=== PATIENT | male | born 1975 | race Caucasian/White ===

== ENCOUNTER 2019-06-22 20:01 | Emergency (ER) | payer SELFPAY ==
[~2019-06-22] VITALS: Ht 162.6 cm; Wt 65.0 kg
[2019-06-22] MEDS ORDERED: SODIUM CHLORIDE 0.9% 1,000 ML IV ONE (22:45)
[2019-06-22] MEDS ORDERED: ACYCLOVIR 400 MG TABLET PO ONE (23:30)
[2019-06-22] MEDS ORDERED: LIDOCAINE HCL 2% JELLY 5ML TOP ONE (23:30)
[2019-06-23 00:36] LABS: BASOPHILS % 0.5 % (0.0-2.0); EOSINOPHILS % 2.4 % (0.0-5.0); HEMATOCRIT. 37.8 % (42.0-52.0); HEMOGLOBIN. 13.1 g/dL (14.0-18.0); LYMPHOCYTES % 40.8 % (20.0-50.0); MEAN CORPUSCULAR VOLUME 86.7 fL (80.0-94.0); MEAN PLATELET VOLUME 8.3 fl (7.4-10.4); MONOCYTES % 6.4 % (2.0-8.0); NEUTROPHILS % 49.9 % (40.0-76.0); PLATELET 280 x1000/uL (130-400); RED BLOOD CELL COUNT 4.36 mill/uL (4.7-6.1); RED CELL DISTRIBUTION WIDTH 12.4 % (11.6-14.6)
[2019-06-23 00:42] LABS: CHLORIDE 106 mEq/L (98-107)
[2019-06-23 00:59] LABS: BETA HYDROXYBUTYRATE 0.2 mMol/L (0.0-0.3)
[2019-06-23 01:07] LABS: CLARITY URINE CLEAR (CLEAR); COLOR URINE YELLOW (YELLOW); KETONES URINE NEGATIVE (NEGATIVE); LEUKOCYTE ESTERASE URINE NEGATIVE (NEGATIVE); NITRITE URINE NEGATIVE (NEGATIVE); OCCULT BLOOD URINE NEGATIVE (NEGATIVE); PH URINE 7.5 (4.5-8.0); PROTEIN URINE NEGATIVE (NEGATIVE); SPECIFIC GRAVITY URINE 1.044 (1.005-1.030); UROBILINOGEN URINE 0.2 E.U./dL (0.2-1.0)
[2019-06-23] MEDS ORDERED: CEFTRIAXONE SODIUM 250 MG/VIAL IM ONE (01:45)
[2019-06-23] MEDS ORDERED: INSULIN LISPRO 100 UNITS/ML SUBCUT NR (01:45)
[2019-06-23] MEDS ORDERED: AZITHROMYCIN 500 MG TABLET PO ONE (01:45)
[2019-06-23 01:50] LABS: *AMPHETAMINES SCREEN URINE NEGATIVE (NEGATIVE); *BARBITURATES SCREEN URINE NEGATIVE (NEGATIVE); *BENZODIAZEPINES SCREEN URINE NEGATIVE (NEGATIVE); *COCAINE SCREEN URINE NEGATIVE (NEGATIVE); CANNABINOID URINE SCREEN NEGATIVE (NEGATIVE); METHADONE URINE SCREEN NEGATIVE (NEGATIVE); OPIATES URINE SCREEN NEGATIVE (NEGATIVE)
[2019-06-23 01:52] LABS: PHENCYCLIDINE URINE SCREEN NEGATIVE (NEGATIVE)
[2019-06-23 02:07] VITALS: BP 118/74
== END 2019-06-23 02:09 | disposition home or self-care (01) ==
LOC: ER 20:01
DX: A60.02 Herpesviral infection of other male genital organs (principal); A60.01 Herpesviral infection of penis; E11.65 Type 2 diabetes mellitus with hyperglycemia
CPT/HCPCS: 36415; 80053; 80305; 81003; 82010; 82962; 83605; 83690; 84145; 85025; 86850; 86900; 86901; 87040; 96360; 96372; 99284; J0696; J1815; J7030

== ENCOUNTER 2019-08-16 21:26 | Emergency (ER) | payer SELFPAY ==
[~2019-08-16] VITALS: Ht 165.1 cm; Wt 70.0 kg
[2019-08-16] MEDS ORDERED: SODIUM CHLORIDE 0.9% 1,000 ML IV ONE (22:33)
[2019-08-16] MEDS ORDERED: ONDANSETRON HCL 4MG/2ML INJ IV ONE (22:45)
[2019-08-16] MEDS ORDERED: ACETAMINOPHEN 325MG TABLET PO ONE (22:45)
[2019-08-16 23:21] LABS: CLARITY URINE CLEAR (CLEAR); COLOR URINE YELLOW (YELLOW); KETONES URINE TRACE (NEGATIVE); LEUKOCYTE ESTERASE URINE NEGATIVE (NEGATIVE); NITRITE URINE NEGATIVE (NEGATIVE); OCCULT BLOOD URINE NEGATIVE (NEGATIVE); PH URINE 7.5 (4.5-8.0); PROTEIN URINE NEGATIVE (NEGATIVE); SPECIFIC GRAVITY URINE 1.042 (1.005-1.030); UROBILINOGEN URINE 0.2 E.U./dL (0.2-1.0)
[2019-08-16 23:30] LABS: CHLORIDE 101 mEq/L (98-107)
[2019-08-16 23:31] LABS: BASOPHILS % 0.5 % (0.0-2.0); EOSINOPHILS % 1.6 % (0.0-5.0); HEMATOCRIT. 42.7 % (42.0-52.0); HEMOGLOBIN. 14.9 g/dL (14.0-18.0); MEAN CORPUSCULAR HEMOGLOBIN 30.2 pg (28.0-32.0); MEAN CORPUSCULAR VOLUME 86.3 fL (80.0-94.0); MONOCYTES % 10.3 % (2.0-8.0); NEUTROPHILS % 56.6 % (40.0-76.0); PLATELET 297 x1000/uL (130-400); RED BLOOD CELL COUNT 4.94 mill/uL (4.7-6.1); RED CELL DISTRIBUTION WIDTH 12.4 % (11.6-14.6)
[2019-08-16 23:40] LABS: BETA HYDROXYBUTYRATE 0.4 mMol/L (0.0-0.3)
[2019-08-17 00:53] VITALS: BP 105/62
== END 2019-08-17 01:19 | disposition home or self-care (01) ==
LOC: ER 21:26
DX: E11.65 Type 2 diabetes mellitus with hyperglycemia (principal); Z79.4 Long term (current) use of insulin
CPT/HCPCS: 36415; 80053; 81003; 82010; 82962; 83690; 84484; 85025; 93005; 96361; 96374; 99284; J2405; J7030

== ENCOUNTER 2022-02-17 19:57 | Inpatient (IN) | payer MEDICAID ==
[~2022-02-17] VITALS: Ht 160 cm; Wt 81.6 kg
[2022-02-18] MEDS ORDERED: SODIUM CHLORIDE 0.9% 1,000 ML IV ONE (00:30)
[2022-02-18 00:34] LABS: BASOPHILS % 0.5 % (0.0-2.0); EOSINOPHILS % 2.1 % (0.0-5.0); HEMATOCRIT. 39.5 % (42.0-52.0); HEMOGLOBIN. 13.7 g/dL (14.0-18.0); LYMPHOCYTES % 25.7 % (20.0-50.0); MEAN CORPUSCULAR VOLUME 86.6 fL (80.0-94.0); MEAN PLATELET VOLUME 7.2 fl (7.4-10.4); MONOCYTES % 6.3 % (2.0-8.0); NEUTROPHILS % 65.4 % (40.0-76.0); PLATELET 350 x1000/uL (130-400); RED BLOOD CELL COUNT 4.57 mill/uL (4.7-6.1); RED CELL DISTRIBUTION WIDTH 13.1 % (11.6-14.6)
[2022-02-18 00:50] LABS: CHLORIDE 108 mEq/L (98-107)
[2022-02-18 00:54] LABS: ETHANOL BLOOD < 10 mg/dL
[2022-02-18 00:59] LABS: CREATINE KINASE 142 IU/L (39-308)
[2022-02-18] MEDS ORDERED: LORAZEPAM 2MG/ML CPJ IV ONE (01:15)
[2022-02-18] MEDS ORDERED: ASPIRIN 81MG TABLET PO ONE (01:15)
[2022-02-18] MEDS ORDERED: KETOROLAC 30MG/ML VIAL IV ONE (01:15)
[2022-02-18] MEDS ORDERED: POTASSIUM CHLORIDE 20MEQ TABLET SR PO ONE (01:30)
[2022-02-18] MEDS ORDERED: ASPIRIN 81MG TABLET PO NR (01:45)
[2022-02-18] MEDS ORDERED: CLONIDINE 0.1MG TABLET PO PRN (01:45)
[2022-02-18] MEDS ORDERED: ONDANSETRON HCL 4MG/2ML INJ IV PRN (01:45)
[2022-02-18] MEDS ORDERED: DOCUSATE SODIUM 100MG CAPSULE PO PRN (01:45)
[2022-02-18] MEDS ORDERED: IPRATROPIUM/ALBUTEROL 0.5-3(2.5)MG/3ML NEB HHN PRN (01:45)
[2022-02-18] MEDS ORDERED: GUAIFENESIN 200MG/10ML SUGAR FREE UDC PO PRN (01:45)
[2022-02-18] MEDS: ENOXAPARIN 40MG/0.4ML SYR SUBCUT SCH (02:00)
[2022-02-18 05:03] LABS: CLARITY URINE CLEAR (CLEAR); COLOR URINE YELLOW (YELLOW); KETONES URINE NEGATIVE (NEGATIVE); LEUKOCYTE ESTERASE URINE NEGATIVE (NEGATIVE); NITRITE URINE NEGATIVE (NEGATIVE); OCCULT BLOOD URINE NEGATIVE (NEGATIVE); PROTEIN URINE NEGATIVE (NEGATIVE); SPECIFIC GRAVITY URINE 1.012 (1.005-1.030); UROBILINOGEN URINE 0.2 E.U./dL (0.2-1.0)
[2022-02-18 05:14] LABS: BASOPHILS % 0.3 % (0.0-2.0); EOSINOPHILS % 1.1 % (0.0-5.0); HEMOGLOBIN. 13.2 g/dL (14.0-18.0); LYMPHOCYTES % 19.7 % (20.0-50.0); MEAN CORPUSCULAR HEMOGLOBIN 30.2 pg (28.0-32.0); MEAN CORPUSCULAR VOLUME 86.7 fL (80.0-94.0); MEAN PLATELET VOLUME 7.4 fl (7.4-10.4); MONOCYTES % 5.2 % (2.0-8.0); NEUTROPHILS % 73.7 % (40.0-76.0); PLATELET 330 x1000/uL (130-400); RED BLOOD CELL COUNT 4.38 mill/uL (4.7-6.1); RED CELL DISTRIBUTION WIDTH 13.1 % (11.6-14.6)
[2022-02-18 05:15] LABS: *AMPHETAMINES SCREEN URINE NEGATIVE (NEGATIVE); *BARBITURATES SCREEN URINE NEGATIVE (NEGATIVE); *BENZODIAZEPINES SCREEN URINE NEGATIVE (NEGATIVE); *COCAINE SCREEN URINE NEGATIVE (NEGATIVE)
[2022-02-18 05:16] LABS: CANNABINOID URINE SCREEN PRESUMTIVE POSITIVE (NEGATIVE); METHADONE URINE SCREEN NEGATIVE (NEGATIVE); OPIATES URINE SCREEN NEGATIVE (NEGATIVE); PHENCYCLIDINE URINE SCREEN NEGATIVE (NEGATIVE)
[2022-02-18 05:25] LABS: CHLORIDE 108 mEq/L (98-107)
[2022-02-18 05:46] LABS: FOLIC ACID (FOLATE) SERUM 17.5 ng/mL (>5.38)
[2022-02-18] MEDS: ASPIRIN 81MG EC TABLET PO SCH (09:37)
[2022-02-18 10:30] VITALS: BP 119/70
[2022-02-18] MEDS ORDERED: DEXTROSE 50% WATER 50ML SYRINGE IV PRN (11:15)
[2022-02-18 12:00] VITALS: BP 122/77
[2022-02-18] MEDS: INSULIN LISPRO 100 UNITS/ML SUBCUT SCH ×3 (12:27→21:04)
[2022-02-18] MEDS: ACETAMINOPHEN 325MG TABLET PO PRN ×2 (12:27→21:09)
[2022-02-18] MEDS: BLOOD SUGAR DIAGNOSTIC STRIP TEST SCH ×3 (12:27→21:04)
[2022-02-18 14:32] VITALS: BP 119/70
[2022-02-18] MEDS: GABAPENTIN 100MG CAPSULE PO SCH ×2 (15:38→21:02)
[2022-02-18 16:00] VITALS: BP 110/59
[2022-02-18 19:54] LABS: TOTAL IRON BINDING CAPACITY 325 ug/dL (250-450)
[2022-02-18 20:00] VITALS: BP 117/72
[2022-02-18] MEDS ORDERED: NALOXONE HCL 0.4MG/ML VIAL IV PRN (20:00)
[2022-02-18] MEDS ORDERED: ATORVASTATIN CALCIUM 40MG TABLET PO SCH (21:00)
[2022-02-18] MEDS: TRAMADOL 50MG TABLET PO PRN (21:02)
[2022-02-19] VITALS (7 sets, daily range): BP systolic 104–130; BP diastolic 58–80
[2022-02-19] MEDS: ENOXAPARIN 40MG/0.4ML SYR SUBCUT SCH (01:46)
[2022-02-19] MEDS: ACETAMINOPHEN 325MG TABLET PO PRN ×3 (01:47→12:38)
[2022-02-19] MEDS: GABAPENTIN 100MG CAPSULE PO SCH ×2 (06:06→14:21)
[2022-02-19] MEDS: BLOOD SUGAR DIAGNOSTIC STRIP TEST SCH ×3 (06:53→17:10)
[2022-02-19] MEDS: INSULIN LISPRO 100 UNITS/ML SUBCUT SCH ×3 (06:54→17:40)
[2022-02-19] MEDS: ASPIRIN 81MG EC TABLET PO SCH (08:11)
[2022-02-19] MEDS: TRAMADOL 50MG TABLET PO PRN ×2 (08:12→16:37)
[2022-02-19] MEDS ORDERED: GABA-529 PO (12:41)
[2022-02-19] MEDS ORDERED: TRAM50TA3 PO (12:41)
== END 2022-02-19 19:13 | disposition home or self-care (01) | DRG 815 ==
LOC: ER 19:57 → 8WST 02-18 01:38
PROVIDERS: ADMIT Internal Medicine; ATTEND Internal Medicine
DX: T75.4XXA Electrocution, initial encounter (principal); E11.42 Type 2 diabetes mellitus with diabetic polyneuropathy; E87.6 Hypokalemia; I10 Essential (primary) hypertension; F12.90 Cannabis use, unspecified, uncomplicated
CPT/HCPCS: 36415; 70551; 71045; 80048; 80053; 80061; 80305; 80320; 81003; 82550; 82607; 82746; 82962; 83036; 83540; 83550; 84443; 84484; 85025; 93005; 97116; 97162; 97166; 99285; J1650; J1815; J1885; J2060; J7030; G0480